=== PATIENT | female | born 1970 | race Asian ===

== ENCOUNTER → 2017-04-10 15:28 | Outpatient (CLI) | payer OTHER | END | disposition home or self-care (01) | LOC: D.MAMMO 12-25 16:00 | DX: N64.4 Mastodynia (principal) ==

== ENCOUNTER → 2017-06-11 14:29 | Outpatient (CLI) | payer OTHER | END | disposition home or self-care (01) | LOC: D.RAD 14:29 | DX: M79.604 Pain in right leg (principal) ==